=== PATIENT | female | born 1955 | race Caucasian/White ===

== ENCOUNTER 2023-04-19 08:50 | Outpatient (OUT) | payer MEDICARE, SELFPAY ==
--- NOTE | 2023-04-19 09:25 | PM.CN ---
Consult Note: HPI Data of Consult Patient: known to practice within the last 3 years Consult date: 04/19/23 Requesting Physician: FREDDY AMAYA NP Primary Care Provider: CITLALY DUMONT Consult Narrative Reason for consult: back pain Narrative: She is here for mid back pain f/u. Baclofen has been helping her, but pain has increased. She had thoracic RFA 2021 with no relief. TPI with 1 day relief in past. UDS done today. Oncologist gave her tramadol which is not helping. No thoracic XR on file. We discussed getting thoracic XR and she is agreeable. She would like to restart percocet. She has been off of it for 2 months she states. She states it helped her pain better. Can restart percocet today. cc:: CC: FREDDY AMAYA NP Review of Systems ROS Status of ROS 10 or more systems reviewed and unremarkable except as noted in history and below Musculoskeletal Reports: back pain Exam Constitutional Documenting provider has reviewed patient's vital signs: yes Common normals: no apparent distress, oriented x3, healthy appearing and well nourished General appearance: cooperative, well developed and anxious Orientation/consciousness: Yes awake, Yes oriented to person, Yes oriented to place and Yes oriented to time HENMT Common normals: normocephalic, external nose normal and moist oral mucous membranes Respiratory Common normals: normal respiratory effort, no retractions and no use of accessory muscles Effort & inspection: able to speak in complete sentences Back & Pelvis Thoracic spine/upper back: normal to inspection, pain with ROM, paraspinal muscle tenderness and other soft tissue findings Other thoracic soft tissue findings laterality: right Lumbar spine/lower back: normal to inspection Other: muscle strength 4/5 bilat upper and lower extremities with intact sensation. positive facet loading right thoracic. Extremity Common normals: normal to inspection, normal capillary refill and no pedal edema Assessment and Plan Assessment and Plan (1) Thoracic back pain: Plan percocet rx, narcan rx thoracic spine XR UDS F/U 2 months
== END 2023-04-19 08:51 ==
PROVIDERS: PCP Family Medicine; Visit Provider Nurse Practitioner
DX: M54.6 Pain in thoracic spine (principal)
CPT/HCPCS: G0463

== ENCOUNTER 2023-05-17 09:39 | Outpatient (OUT) | payer MEDICARE, SELFPAY ==
--- NOTE | 2023-05-17 09:47 | XR_ITS ---
The [address] [address] Patient Name: ALFRED CERRATO MRN: [id number] date: 1955 Sex: F Assigned Patient Location: [facility] Current Patient Location: [facility] Accession/Order Number: [id number] Exam Date: 05/17/2023 09:50 Report Date: 05/17/2023 10:25 At the request of: FREDDY AMAYA Procedure: XR thoracic spine 2V EXAMINATION: XR thoracic spine 2V HISTORY: Thoracic pain COMPARISON: CT T-spine 12/01/2020 FINDINGS: BONES: Mild right convex curvature of thoracic spine. No fracture, spondylolisthesis, bone lesion. DISC SPACES: Multilevel mild degenerative changes. PARASPINOUS: Negative. No paraspinous abnormality is seen. OTHER: Negative. IMPRESSION: 1. Mild dextrocurvature of thoracic spine; slightly progressed. 2. Multilevel mild degenerative changes; stable to minimally progressed. Electronically authenticated by: ALINA SCHAFER Date: 05/17/2023 10:25
== END 2023-05-17 09:40 | disposition home or self-care (01) ==
LOC: RAD 09:41
PROVIDERS: PCP Family Medicine; Visit Provider Nurse Practitioner
DX: M54.6 Pain in thoracic spine (principal); M41.9 Scoliosis, unspecified; M51.34 Other intervertebral disc degeneration, thoracic region
CPT/HCPCS: 72070

== ENCOUNTER 2023-06-22 09:51 | Outpatient (OUT) | payer MEDICARE, SELFPAY ==
--- NOTE | 2023-06-22 10:08 | PM.CN ---
Consult Note: HPI Data of Consult Patient: known to practice within the last 3 years Consult date: 06/22/23 Requesting Physician: FREDDY AMAYA NP Primary Care Provider: CITLALY DUMONT Consult Narrative Narrative: Patient is here for f/u of chronic right mid back pain . She saw advanced neuro who changed her muscle relaxer to tizanidine. Pain today is right thoracic area worse with ROM . No new sensorimotor sx or bowel or bladder issues. Medication regimen assists patient to better complete ADLs. Denies adverse medication SE. OARRS reviewed. We discussed PT and she would like to try it. She has had thoracic RFA in past without relief. cc:: CC: FREDDY AMAYA NP Review of Systems ROS Status of ROS 10 or more systems reviewed and unremarkable except as noted in history and below Musculoskeletal Reports: back pain Meds Home Medications and Allergies Home Medications Medication Instructions Recorded Confirmed Type aspirin 81 mg tablet,delayed 81 mg PO DAILY 04/19/23 04/19/23 History release calcium 600 mg capsule mg PO 04/19/23 History carvedilol phosphate 10 mg 10 mg PO DAILY 04/19/23 04/19/23 History capsule,[id number] multiphase hydroxyzine HCl 50 mg tablet 50 mg PO .HS 04/19/23 04/19/23 History levothyroxine 112 mcg capsule 112 mcg PO DAILY 04/19/23 04/19/23 History magnesium oxide 400 mg (241.3 mg 400 mg PO DAILY 04/19/23 04/19/23 History magnesium) tablet multivitamin 1 tab PO DAILY 04/19/23 04/19/23 History oxycodone-acetaminophen 5 mg-325 1 tab PO TID 04/19/23 04/19/23 History mg tablet (Endocet) rivaroxaban 20 mg tablet (Xarelto) 20 mg PO DAILY 04/19/23 04/19/23 History zinc 50 mg tablet 50 mg PO DAILY 04/19/23 04/19/23 History Allergies Allergy/AdvReac Type Severity Reaction Status Date / Time Sulfa (Sulfonamide Allergy Verified 04/19/23 12:44 Antibiotics) Exam Constitutional Documenting provider has reviewed patient's vital signs: yes Common normals: no apparent distress, average body habitus, oriented x3, healthy appearing, alert and well nourished General appearance: cooperative, comfortable and well developed Orientation/consciousness: Yes awake, Yes oriented to person, Yes oriented to place and Yes oriented to time HENMT Common normals: normocephalic and moist oral mucous membranes Respiratory Common normals: normal respiratory effort, no retractions and no use of accessory muscles Effort & inspection: able to speak in complete sentences and symmetric chest movement Back & Pelvis Thoracic spine/upper back: normal to inspection, pain with ROM, paraspinal muscle tenderness and paraspinal muscle spasm Other: positive facet load pain right thoracic muscle strength 4/5 bilat UE with intact sensation Extremity Common normals: normal to inspection and normal capillary refill Assessment and Plan Assessment and Plan (1) Thoracic spondylosis: (2) Thoracic back pain: Plan Nonagressive PT for thoracic area
== END 2023-06-22 09:52 | disposition home or self-care (01) ==
LOC: PM 09:52
PROVIDERS: PCP Family Medicine; Visit Provider Nurse Practitioner
DX: M47.814 Spondylosis without myelopathy or radiculopathy, thoracic region (principal); M54.6 Pain in thoracic spine
CPT/HCPCS: G0463

== ENCOUNTER 2023-07-18 11:20 | Outpatient (OUT) | payer MEDICARE, SELFPAY ==
--- NOTE | 2023-07-18 11:36 | P.CN_ITS ---
Consult Note: HPI Data of Consult Patient: known to practice within the last 3 years Requesting Physician: Lexie Alston NP Primary Care Provider: CITLALY DUMONT Consult Narrative Reason for consult: fibromyalgia and acute pain Narrative: Maeve Torres a pleasant 68 year old female presents with 6-10/10 pain in right lower back radiating down right leg. Patient noticed this pain starting a few days ago and today pain is sharp and intense. Patient has a hx of blood clots and is on xarelto. Has noticed increase in cramps to right calf in the last few days. Patient would like to discuss restarting duloxetine for fibromyalgia. cc:: CC: Lexie Alston NP Review of Systems ROS Status of ROS 10 or more systems reviewed and unremarkable except as noted in history and below Musculoskeletal Reports: back pain, extremity pain, limited range of motion, muscle cramps and muscle weakness Meds Home Medications and Allergies Home Medications Medication Instructions Recorded Confirmed Type aspirin 81 mg tablet,delayed 81 mg PO DAILY 04/19/23 04/19/23 History release calcium 600 mg capsule mg PO 04/19/23 History carvedilol phosphate 10 mg 10 mg PO DAILY 04/19/23 04/19/23 History capsule,[id number] multiphase hydroxyzine HCl 50 mg tablet 50 mg PO .HS 04/19/23 04/19/23 History levothyroxine 112 mcg capsule 112 mcg PO DAILY 04/19/23 04/19/23 History magnesium oxide 400 mg (241.3 mg 400 mg PO DAILY 04/19/23 04/19/23 History magnesium) tablet multivitamin 1 tab PO DAILY 04/19/23 04/19/23 History oxycodone-acetaminophen 5 mg-325 1 tab PO TID 04/19/23 04/19/23 History mg tablet (Endocet) rivaroxaban 20 mg tablet (Xarelto) 20 mg PO DAILY 04/19/23 04/19/23 History zinc 50 mg tablet 50 mg PO DAILY 04/19/23 04/19/23 History Allergies Allergy/AdvReac Type Severity Reaction Status Date / Time Sulfa (Sulfonamide Allergy Verified 04/19/23 12:44 Antibiotics) Exam Constitutional Documenting provider has reviewed patient's vital signs: yes Common normals: no apparent distress, oriented x3, healthy appearing, alert and well nourished General appearance: cooperative Nutritional appearance: obese HENMT Common normals: normocephalic, hearing grossly normal bilaterally and moist oral mucous membranes Head and scalp: normocephalic Eye Common normals: PERRL Pupil: PERRL Neck & C-Spine Common normals: full ROM General: normal visual inspection Chest Common normals: inspection of chest normal Respiratory Common normals: normal respiratory effort, no retractions and no use of accessory muscles Back & Pelvis Lumbar spine/lower back: ROM limited, pain with ROM and straight leg raise positive right Other: sciatic nerve pain to right side Extremity Left lower extremity: knee joint Other: right posterior knee tender to touch, warmth to touch. No knot present, no redness, not hot to touch. Patient jumped with touch on physical exam. Patient noticing increase in cramps to right calf over the last few days. Neuro Common normals: oriented x3, CN's II-XII intact bilaterally, moves all extremities, no focal motor deficits, no sensory deficits noted and deep tendon reflexes 2+ bilaterally Sensorium/orientation: alert Motor exam: strength 5/5 throughout and no movement abnormalities noted Psych Common normals: mental status grossly normal, thought process normal, cooperative, affect normal, speech normal and activity/motor behavior normal Speech: normal speech Thought process: normal thought process Results Additional Findings Additional findings: I have checked an OARRS report on this patient today and there are no aberrancies noted in the prescribing history.?? A drug screen was completed and reviewed within the last year, and if there has not been a drug screen completed we ordered one today to monitor higher risk, state monitored pain medication use. As part of providing excellent, safe, comprehensive care, the following was completed at our patient's visit: 1. A medication reconciliation and review to ensure accurate knowledge of current/active medications, including asking our patients to inform us about any [id number] medications or herbal remedies/nutritional supplements/alternative remedies. 2. A review to specifically ensure our patients have had annual screening for: elevated body mass index (BMI), tobacco use, screening for depression, and screening for unhealthy alcohol use. When screening is concerning, patients are provided with education and the specific recommendation to discuss the conc erning health issue and treatment options with their primary care provider. Assessment and Plan Assessment and Plan (1) Sciatic nerve pain: (2) Right knee pain: (3) Lumbar back pain with radiculopathy affecting right lower extremity: (4) Fibromyalgia: Plan Concerned with physical exam findings today to RLE, encouraged ER follow up. We evaluate and treat chronic pain. restart duloxetine 30mg PO daily for fibromyalgia xray lumbar spine f/u 2 weeks to discuss duloxetine
== END 2023-07-18 11:21 | disposition home or self-care (01) ==
LOC: PM 11:20
PROVIDERS: PCP Family Medicine; Visit Provider Nurse Practitioner
DX: M79.7 Fibromyalgia (principal); M25.561 Pain in right knee; M54.41 Lumbago with sciatica, right side
CPT/HCPCS: G0463

== ENCOUNTER 2023-07-18 12:00 | Emergency (ER) | payer MEDICARE, SELFPAY ==
[2023-07-18 12:11] VITALS: BP 128/101; PULSE 65; RESP 17; TEMP 36.3; O2SAT 99
--- NOTE | 2023-07-18 12:45 | US_ITS ---
The [place] [id number] Patient Name: ALFRED CERRATO MRN: [id number] date: 1955 Sex: F Assigned Patient Location: ER Current Patient Location: ER Accession/Order Number: [id number] Exam Date: 07/18/2023 13:11 Report Date: 07/18/2023 13:39 At the request of: MITCH MEHTA Procedure: US venous doppler LE RT EXAM: US venous doppler LE RT HISTORY: pain right lower extremity pain COMPARISON: None. TECHNIQUE: Doppler color flow as well as spectral analysis were performed of the right lower extremity. FINDINGS: There is adequate flow, compressibility, or augmentation within the visualized deep venous structures of the right lower extremity. No evidence of deep venous thrombus. US/US venous doppler LE RT IMPRESSION: 1. No deep venous thrombus. Electronically authenticated by: KIRAN PERDUE Date: 07/18/2023 13:39
--- NOTE | 2023-07-18 12:45 | ED.BACK1 ---
HPI - Back Pain/Injury General Chief Complaint: Back Pain/Injury Stated Complaint: LUMBAR SPINE AND LOWER EXTREMETY PAIN Time Seen by Provider: 07/18/23 12:45 Source: patient Mode of arrival: walk-in Limitations: no limitations History of Present Illness HPI Narrative: Patient presents to emergency department complaining of right leg pain. Patient states she has a history of fibromyalgia and sciatica. She was seen by the nurse practitioner at the pain management clinic and was sent here for evaluation of her lower extremity to check for blood clot. Patient has a history of blood clots. She is complaining of pain that radiates to her right Of. Patient is currently on xarelto. She denies missing any doses. He denies any injury. She states the pain has worsened in the last 2 days. She denies any paresthesias, or weakness. She denies any urinary, or bowel incontinence, retention. She denies any fever, chills, chest pain, shortness of breath. She denies any urinary, bowel incontinence, retention. Related Data Home Medications Medication Instructions Recorded Confirmed aspirin 81 mg tablet,delayed 81 mg PO DAILY 04/19/23 04/19/23 release calcium 600 mg capsule mg PO 04/19/23 carvedilol phosphate 10 mg 10 mg PO DAILY 04/19/23 04/19/23 capsule,[id number] multiphase hydroxyzine HCl 50 mg tablet 50 mg PO .HS 04/19/23 04/19/23 levothyroxine 112 mcg capsule 112 mcg PO DAILY 04/19/23 04/19/23 magnesium oxide 400 mg (241.3 mg 400 mg PO DAILY 04/19/23 04/19/23 magnesium) tablet multivitamin 1 tab PO DAILY 04/19/23 04/19/23 oxycodone-acetaminophen 5 mg-325 1 tab PO TID 04/19/23 04/19/23 mg tablet (Endocet) rivaroxaban 20 mg tablet (Xarelto) 20 mg PO DAILY 04/19/23 04/19/23 zinc 50 mg tablet 50 mg PO DAILY 04/19/23 04/19/23 duloxetine 30 mg capsule,delayed 30 mg PO DAILY 07/18/23 07/18/23 release tizanidine 4 mg tablet 4 mg PO BEDTIME 07/18/23 07/18/23 Previous Rx's Medication Instructions Recorded methylprednisolone 4 mg tablets in 4 mg PO DAILY #21 ea 07/18/23 a dose pack (Medrol ([place])) Allergies Allergy/AdvReac Type Severity Reaction Status Date / Time Sulfa (Sulfonamide Allergy Verified 04/19/23 12:44 Antibiotics) Review of Systems ROS Status of ROS 10 or more systems reviewed and unremarkable except as noted in history and below Exam Narrative Exam Narrative: Nurses notes and vital signs reviewed and patient is not hypoxic. General: Nontoxic, Well-appearing and in no apparent distress. Skin: Warm, dry, no pallor noted. No Rash Head: Normocephalic, atraumatic. Neck: Supple, non-tender. Eye: Pupils are equal, round and EOMI. No scleral icterus. Ears, Nose, Mouth, and Throat: TM clear, no posterior oropharynx erythema or nasal mucosal hypertrophy, uvula is mid-line Oral mucosa is moist Cardiovascular: Regular Rate and Rhythm without murmur, gallop or rub. Respiratory: No accessory muscle use or respiratory distress. Lungs are clear to auscultation, no wheezing, rales or rhonchi Chest Wall: no tenderness Back: No midline thoracic Tenderness. L4-L5 midline lumbar vertebral tenderness. No CVA tenderness Musculoskeletal: Tenderness to palpation to the right. There is no asymmetry, no palpable cords. No erythema or ecchymosis. There is no signs of trauma, infection. GI: Abdomen is soft, non-distended. Normal bowel sounds. No masses appreciated. No tenderness to palpation. No rebound, guarding, or rigidity noted. Neurological: A&O x4. No cranial nerve dysfunction observed. No truncal ataxia. Moves all extremities. Psychiatric: Cooperative and interactive. Normal mood and affect. Constitutional Vital Signs, click to edit/add: Last Vital Signs Temp 97.4 F L 07/18/23 12:11 Pulse 65 07/18/23 12:11 Resp 17 07/18/23 12:11 BP 128/101 H 07/18/23 12:11 Pulse Ox 99 07/18/23 12:11 O2 Del Method Room Air 07/18/23 12:11 Course Vital Signs Vital signs: Vital Signs Temperature 97.4 F L 07/18/23 12:11 Pulse Rate 65 07/18/23 12:11 Respiratory Rate 17 07/18/23 12:11 Blood Pressure 128/101 H 07/18/23 12:11 Pulse Oximetry 99 07/18/23 12:11 Oxygen Delivery Method Room Air 07/18/23 12:11 Temperature 97.4 F L 07/18/23 12:11 Pulse Rate 65 07/18/23 12:11 Respiratory Rate 17 07/18/23 12:11 Blood Pressure 128/101 H 07/18/23 12:11 Pulse Oximetry 99 07/18/23 12:11 Oxygen Delivery Method Room Air 07/18/23 12:11 MDM - Back Pain/Injury MDM Narrative Medical decision making narrative: The [place] [id number] Patient Name: ALFRED CERRATO MRN: [facility]:[id number] date: 1955 Sex: F Assigned Patient Location: ER Current Patient Location: ER Accession/Order Number: [id number] Exam Date: 07/18/2023 13:52 Report Date: 07/18/2023 14:41 At the request of: MITCH MEHTA Procedure: CT lumbar spine wo con CT lumbar spine CLINICAL: Chronic lumbar pain with pain down right leg for 2 weeks. Right foot pain for a few days. TECHNIQUE: Contiguous transaxial images were obtained through the lumbar spine without administration of intravenous contrast. Coronal and sagittal reformations were performed. Dose reduction: mA and/or kV are were adjusted by automated exposure control software based upon patients height and weight. FINDINGS: Comparison made to remote lumbar MRI dated 10/22/2020. There are 5 nonrib-bearing lumbar vertebral bodies. There is no lumbar scoliosis. There is no acute lumbar vertebral compression fracture. There is mild degenerative disc disease of the lumbar spine with minimal grade 1 anterolisthesis of L3 on L4 and L4 on L5. There is disc calcification at the L5-S1 intervertebral disc space. There is abdominal aortic and aortic branch vessel atherosclerosis. There is mild aneurysmal dilatation of the infrarenal abdominal aorta that is mildly tortuous. There are cholecystectomy clips. There are calcified splenic granulomata. There is a cortically based calcification at the left kidney, incompletely evaluated on this nondedicated examination. There is colonic diverticulosis partially visualized. Axial interrogation demonstrates the following: L1-2: There is no significant disc herniation, central canal stenosis, or neural foraminal narrowing. L2-3: There is a mild broad-based disc bulge. There is no central canal stenosis or neural foraminal narrowing. L3-4: There is minimal grade 1 anterolisthesis of L3 on L4. There is a mild broad-based disc bulge with bilateral, right greater than left, facet joint osteoarthritis and ligamentum flavum hypertrophy that contribute to mild central canal stenosis. There is mild bilateral neural foraminal narrowing. L4-5: There is minimal grade 1 anterolisthesis of L4 on L5. There is a mild broad-based disc bulge with bilateral facet joint osteoarthritis. There is mild central canal stenosis. There is mild to moderate bilateral neural foraminal narrowing. L5-S1: There is a posterior disc-osteophyte complex, eccentric to the right with right paracentral, subarticular, and foraminal components. There is bilateral facet joint osteoarthritis. There is no central canal stenosis although there is mild effacement of the right lateral recess. There is severe right neural foraminal narrowing. There is mild left neural foraminal narrowing. IMPRESSION: 1. No acute lumbar vertebral compression fracture. 2. Multilevel degenerative disc disease of the lumbar spine with minimal grade 1 anterolisthesis of L3 on L4 and L4 on L5. 3. At L5-S1, there is a posterior disc-osteophyte complex that is eccentric to the right with right paracentral, subarticular, and foraminal components. There is bilateral facet joint osteoarthritis. There is no central canal stenosis although there is mild effacement the right lateral recess. There is severe right and mild left neural foraminal narrowing. 4. At L4-5, there is minimal grade 1 anterolisthesis of L4 on L5 with a mild broad-based disc bulge and bilateral facet joint osteoarthritis. There is mild central canal stenosis with mild to moderate bilateral neural foraminal narrowing. 5. At L3-4, there is minimal grade 1 anterolisthesis of L3 on L4. There is a mild broad-based disc bulge with bilateral facet joint osteoarthritis and ligamentum flavum hypertrophy that contribute to mild central canal stenosis. There is mild bilateral neural foraminal narrowing. 6. Additional incidental findings as described. Electronically authenticated by: CAYETANO THOMPSON Date: 07/18/2023 14:41 [place] [id number] Patient Name: ALFRED CERRATO MRN: [id number] date: 1955 Sex: F Assigned Patient Location: ER Current Patient Location: ER Accession/Order Number: [id number] Exam Date: 07/18/2023 13:52 Report Date: 07/18/2023 14:28 At the request of: MITCH MEHTAPatient Name: ALFRED CERRATO MRN: [id number] date: 1955 Sex: F Assigned Patient Location: ER Current Patient Location: ER Accession/Order Number: [id number] Exam Date: 07/18/2023 13:11 Report Date: 07/18/2023 13:39 At the request of: MITCH MEHTA Procedure: US venous doppler LE RT EXAM: US venous doppler LE RT HISTORY: pain right lower extremity pain COMPARISON: None. TECHNIQUE: Doppler color flow as well as spectral analysis were performed of the right lower extremity. FINDINGS: There is adequate flow, compressibility, or augmentation within the visualized deep venous structures of the right lower extremity. No evidence of deep venous thrombus. IMPRESSION: 1. No deep venous thrombus. Procedure: XR foot RT min 3V PROCEDURE: XR foot RT min 3V COMPARISON: None. HISTORY: pain FINDINGS: BONES:No acute fracture or dislocation. Remote fixation of the distal tibia with 2 cannulated screws. SOFT TISSUES:Negative. No visible soft tissue swelling. EFFUSION:None visible. OTHER: Negative. IMPRESSION: No acute abnormality Electronically authenticated by: COLIN COUGHLIN Date: 07/18/2023 14:28 Radiologic studies were done and did not show anything acute. Does not have a clot, or an acute fracture of the foot or lumbar spine. She has adequate analgesics and steroids given to her by pain management. The patient was reassured, she Is grateful. She is nontoxic, stable for outpatient follow-up and treatment. At this time the patient is without objective evidence of an acute process requiring hospitalization or inpatient management. The patient has remained hemodynamically stable. No additional indication for emergent studies at this time. I answered all questions. Discussed discharge instructions including standard anticipatory guidance and what should prompt a return to the emergency department, including if they get worse are not getting better or develops any new or concerning symptoms. I've given them specific time frame in which to follow-up, and who to follow-up with. The patient demonstrates understanding. Patient is nontoxic and stable for discharge with outpatient follow-up. This note was created with the assistance of a speech recognition program. Although the intention is to generate documents that actually reflects the content of the visit, no guarantees can be provided that every mistake has been identified and corrected by editing. Differential Diagnosis Differential diagnosis: Likely lumbar radiculopathy, sciatica and strain of lumbar region Medical Records Attestation: I reviewed the patient's medical records. Discharge Plan Discharge Chief Complaint: Back Pain/Injury Clinical Impression: Sciatica of right side, Low back pain, Leg pain, right Patient Disposition: Home, Self-Care Time of Disposition Decision: 15:04 Condition: Good Mode of Transportation: Private Vehicle Prescriptions / Home Meds: New methylprednisolone [Medrol ([place])] 4 mg tablets,dose pack 4 mg PO DAILY Qty: 21 0RF No Action calcium 600 mg capsule PO aspirin 81 mg tablet,delayed release (DR/EC) 81 mg PO DAILY magnesium oxide 400 mg (241.3 mg magnesium) tablet 400 mg PO DAILY multivitamin Tablet 1 tab PO DAILY Xarelto 20 mg tablet 20 mg PO DAILY Rx Instructions: must administer with evening meal zinc 50 mg tablet 50 mg PO DAILY carvedilol phosphate 10 mg capsule, ER multiphase 24 hr 10 mg PO DAILY Rx Instructions: must administer with a meal/food hydroxyzine HCl 50 mg tablet 50 mg PO .HS levothyroxine 112 mcg capsule 112 mcg PO DAILY oxycodone-acetaminophen [Endocet] 5-325 mg tablet 1 tab PO TID tizanidine 4 mg tablet 4 mg PO BEDTIME duloxetine 30 mg capsule,delayed release(DR/EC) 30 mg PO DAILY Instructions: Sciatica (ED), Back Pain (ED), Leg Pain (ED) Stand Alone Forms: Portal Instructions Referrals: CITLALY DUMONT [Primary Care Provider] - 1 week Discharge Date/Time: 07/18/23 15:12
--- NOTE | 2023-07-18 12:59 | CT_ITS ---
The [address] [address] Patient Name: ALFRED CERRATO MRN: [id number] date: 1955 Sex: F Assigned Patient Location: ER Current Patient Location: ER Accession/Order Number: [id number] Exam Date: 07/18/2023 13:52 Report Date: 07/18/2023 14:41 At the request of: MITCH MEHTA Procedure: CT lumbar spine wo con CT lumbar spine CLINICAL: Chronic lumbar pain with pain down right leg for 2 weeks. Right foot pain for a few days. TECHNIQUE: Contiguous transaxial images were obtained through the lumbar spine without administration of intravenous contrast. Coronal and sagittal reformations were performed. Dose reduction: mA and/or kV are were adjusted by automated exposure control software based upon patients height and weight. FINDINGS: Comparison made to remote lumbar MRI dated 10/22/2020. There are 5 nonrib-bearing lumbar vertebral bodies. There is no lumbar scoliosis. There is no acute lumbar vertebral compression fracture. There is mild degenerative disc disease of the lumbar spine with minimal grade 1 anterolisthesis of L3 on L4 and L4 on L5. There is disc calcification at the L5-S1 intervertebral disc space. There is abdominal aortic and aortic branch vessel atherosclerosis. There is mild aneurysmal dilatation of the infrarenal abdominal aorta that is mildly tortuous. There are cholecystectomy clips. There are calcified splenic granulomata. There is a cortically based calcification at the left kidney, incompletely evaluated on this nondedicated examination. There is colonic diverticulosis partially visualized. Axial interrogation demonstrates the following: L1-2: There is no significant disc herniation, central canal stenosis, or neural foraminal narrowing. L2-3: There is a mild broad-based disc bulge. There is no central canal stenosis or neural foraminal narrowing. L3-4: There is minimal grade 1 anterolisthesis of L3 on L4. There is a mild broad-based disc bulge with bilateral, right greater than left, facet joint osteoarthritis and ligamentum flavum hypertrophy that contribute to mild central canal stenosis. There is mild bilateral neural foraminal narrowing. L4-5: There is minimal grade 1 anterolisthesis of L4 on L5. There is a mild broad-based disc bulge with bilateral facet joint osteoarthritis. There is mild central canal stenosis. There is mild to moderate bilateral neural foraminal narrowing. L5-S1: There is a posterior disc-osteophyte complex, eccentric to the right with right paracentral, subarticular, and foraminal components. There is bilateral facet joint osteoarthritis. There is no central canal stenosis although there is mild effacement of the right lateral recess. There is severe right neural foraminal narrowing. There is mild left neural foraminal narrowing. CT/CT lumbar spine wo con IMPRESSION: 1. No acute lumbar vertebral compression fracture. 2. Multilevel degenerative disc disease of the lumbar spine with minimal grade 1 anterolisthesis of L3 on L4 and L4 on L5. 3. At L5-S1, there is a posterior disc-osteophyte complex that is eccentric to the right with right paracentral, subarticular, and foraminal components. There is bilateral facet joint osteoarthritis. There is no central canal stenosis although there is mild effacement the right lateral recess. There is severe right and mild left neural foraminal narrowing. 4. At L4-5, there is minimal grade 1 anterolisthesis of L4 on L5 with a mild broad-based disc bulge and bilateral facet joint osteoarthritis. There is mild central canal stenosis with mild to moderate bilateral neural foraminal narrowing. 5. At L3-4, there is minimal grade 1 anterolisthesis of L3 on L4. There is a mild broad-based disc bulge with bilateral facet joint osteoarthritis and ligamentum flavum hypertrophy that contribute to mild central canal stenosis. There is mild bilateral neural foraminal narrowing. 6. Additional incidental findings as described. Electronically authenticated by: CAYETANO THOMPSON Date: 07/18/2023 14:41
--- NOTE | 2023-07-18 12:59 | XR_ITS ---
[address] [address] Patient Name: ALFRED CERRATO MRN: [id number] date: 1955 Sex: F Assigned Patient Location: ER Current Patient Location: ER Accession/Order Number: [id number] Exam Date: 07/18/2023 13:52 Report Date: 07/18/2023 14:28 At the request of: MITCH MEHTA Procedure: XR foot RT min 3V PROCEDURE: XR foot RT min 3V COMPARISON: None. HISTORY: pain FINDINGS: BONES:No acute fracture or dislocation. Remote fixation of the distal tibia with 2 cannulated screws. SOFT TISSUES:Negative. No visible soft tissue swelling. EFFUSION:None visible. OTHER: Negative. XR/XR foot RT min 3V IMPRESSION: No acute abnormality Electronically authenticated by: COLIN COUGHLIN Date: 07/18/2023 14:28
--- NOTE | 2023-07-18 16:52 | ECG_ITS ---
The [facility] Test Date: 2023-07-18 Pat Name: ALFRED CERRATO Department: Room: - Gender: Female Data Management: : 1955 Requested By: Order Number: [id number] Reading MD: GLEN PHILLIP Measurements Intervals [place] Rate: 57 P: 65 OK: 144 QRS: 47 QRSD: 88 T: 60 QT: 432 QTc: 427 Interpretive Statements 1100 Sinus rhythm 9110 normal ECG No previous ECG available for comparison Electronically Signed On 07-19-2023 7:05:54 EDT by GLEN PHILLIP
== END 2023-07-18 15:12 | disposition home or self-care (01) ==
PROVIDERS: Emergency Provider Emergency Medicine; PCP Family Medicine
DX: M54.41 Lumbago with sciatica, right side (principal); M79.604 Pain in right leg; M79.7 Fibromyalgia; M25.561 Pain in right knee; Z79.01 Long term (current) use of anticoagulants; Z79.82 Long term (current) use of aspirin; Z79.899 Other long term (current) drug therapy; Z79.890 Hormone replacement therapy
CPT/HCPCS: 72131; 73630; 93005; 93971; 99285; G0463

== ENCOUNTER 2023-08-01 12:41 | Outpatient (OUT) | payer MEDICARE, SELFPAY ==
--- NOTE | 2023-08-01 13:15 | P.CN_ITS ---
Consult Note: HPI Data of Consult Requesting Physician: Lexie Alston NP Primary Care Provider: CITLALY DUMONT Consult Narrative Reason for consult: f/u Narrative: Maeve Torres a pleasant 68 year old female presents for evaluation of chronic back pain with bilateral radiculopathy. Patient rating pain 4/10 today. Has been on a 21 day steroid pack since last ER visit for back and right leg pain. cc:: CC: Lexie Alston NP Review of Systems ROS Status of ROS 10 or more systems reviewed and unremarkable except as noted in history and below Musculoskeletal Reports: back pain, extremity pain and joint pain Meds Home Medications and Allergies Home Medications Medication Instructions Recorded Confirmed Type aspirin 81 mg tablet,delayed 81 mg PO DAILY 04/19/23 04/19/23 History release calcium 600 mg capsule mg PO 04/19/23 History carvedilol phosphate 10 mg 10 mg PO DAILY 04/19/23 04/19/23 History capsule,[id number] multiphase hydroxyzine HCl 50 mg tablet 50 mg PO .HS 04/19/23 04/19/23 History levothyroxine 112 mcg capsule 112 mcg PO DAILY 04/19/23 04/19/23 History magnesium oxide 400 mg (241.3 mg 400 mg PO DAILY 04/19/23 04/19/23 History magnesium) tablet multivitamin 1 tab PO DAILY 04/19/23 04/19/23 History oxycodone-acetaminophen 5 mg-325 1 tab PO TID 04/19/23 04/19/23 History mg tablet (Endocet) rivaroxaban 20 mg tablet (Xarelto) 20 mg PO DAILY 04/19/23 04/19/23 History zinc 50 mg tablet 50 mg PO DAILY 04/19/23 04/19/23 History duloxetine 30 mg capsule,delayed 30 mg PO DAILY 07/18/23 07/18/23 History release methylprednisolone 4 mg tablets in 4 mg PO DAILY #21 ea 07/18/23 Rx a dose pack (Medrol ([facility])) tizanidine 4 mg tablet 4 mg PO BEDTIME 07/18/23 07/18/23 History oxycodone-acetaminophen 5 mg-325 1 tab PO TID PRN pain #90 tabs 08/01/23 Rx mg tablet (Percocet) Allergies Allergy/AdvReac Type Severity Reaction Status Date / Time Sulfa (Sulfonamide Allergy Verified 04/19/23 12:44 Antibiotics) Exam Constitutional Documenting provider has reviewed patient's vital signs: yes Common normals: no apparent distress, oriented x3, healthy appearing, alert and well nourished General appearance: cooperative HENMT Common normals: normocephalic, hearing grossly normal bilaterally and moist oral mucous membranes Head and scalp: normocephalic Eye Common normals: PERRL Pupil: PERRL Neck & C-Spine Common normals: full ROM General: normal visual inspection Chest Common normals: inspection of chest normal Respiratory Common normals: normal respiratory effort, no retractions and no use of accessory muscles Back & Pelvis Lumbar spine/lower back: ROM limited, pain with ROM, straight leg raise positive right and straight leg raise positive left Extremity Common normals: normal to inspection and full ROM Neuro Common normals: oriented x3, CN's II-XII intact bilaterally, moves all extremities, no focal motor deficits, no sensory deficits noted and deep tendon reflexes 2+ bilaterally Sensorium/orientation: alert Gait (neuro): antalgic Motor exam: strength 5/5 throughout and no movement abnormalities noted Psych Common normals: mental status grossly normal, thought process normal, cooperative, affect normal, speech normal and activity/motor behavior normal Speech: normal speech Thought process: normal thought process Results Additional Findings Additional findings: I have checked an OAR[place] report on this patient today and there are no aberrancies noted in the prescribing history.?? A drug screen was completed and reviewed within the last year, and if there has not been a drug screen completed we ordered one today to monitor higher risk, state monitored pain medication use. As part of providing excellent, safe, comprehensive care, the following was completed at our patient's visit: 1. A medication reconciliation and review to ensure accurate knowledge of current/active medications, including asking our patients to inform us about any [id number] medications or herbal remedies/nutritional sup plements/alternative remedies. 2. A review to specifically ensure our patients have had annual screening for: elevated body mass index (BMI), tobacco use, screening for depression, and screening for unhealthy alcohol use. When screening is concerning, patients are provided with education and the specific recommendation to discuss the concerning health issue and treatment options with their primary care provider. Assessment and Plan Assessment and Plan (1) Fibromyalgia: (2) Lumbar back pain with radiculopathy affecting right lower extremity: Assessment and Plan: CT scan reviewed with patient, could benefit from TFESI in the future (3) Chronic prescription opiate use: Assessment and Plan: I feel these medications are improving the patient's quality of life and allow them to tolerate activities of daily living as well as participate in recreational activity.? The patient does not report intolerable side effects. The patient is NOT opioid naive and non-pharmacologic and non-opioid treatment has failed to significantly relieve the patient's pain and improve functionality. The patient has a diagnosis that is related to a somatic or visceral pain etiology. ? ?? I reviewed with the patient the potential risks and side effects with the use of? opioid medications including but not limited to respiratory depression,? sedation, and even . I verified the patient has access to naloxone should? these effects occur. I advised the patient to avoid the use of any other? sedation substances including alcohol, THC, and benzodiazepines while? taking opioid medications due to the risk of compounding side effects and? detrimental outcomes. I reviewed the IUSS ACOUSTIC ANALYST, pain treatment agreement, urine? drug screen, and opioid start talking forms. The patient was advised to let? their family know they had Naloxone in case they would need to administer? the medication.? ?? A drug screen was completed within the last year, and no aberrancies were noted regarding their use of controlled substances. The patient understands they are subject to the terms and conditions of the pain contract that they have signed. ? ?? I have checked an OARRS report on this patient today and there are no aberrancies noted in the prescribing history.? (4) Obesity: Plan increase duloxetine 60mg HS finish steroid pack from ER, has 6 days left. Has noticed improvement in radicu lar pain but continues to have right knee pain refill and continue percocet 5-325mg PO TID PRN moderate severe pain, tolerating well without side effects f/u 1 month, could benefit from bilateral L4-5 TFESI in the future
== END 2023-08-01 12:42 | disposition home or self-care (01) ==
PROVIDERS: PCP Family Medicine; Visit Provider Nurse Practitioner
DX: M79.7 Fibromyalgia (principal); M54.50 Low back pain, unspecified; Z79.891 Long term (current) use of opiate analgesic
CPT/HCPCS: G0463

== ENCOUNTER 2023-08-02 12:36 | Outpatient (OUT) | payer MEDICARE, SELFPAY ==
[2023-08-02 14:10] LABS: Calcium 9.2 mg/dL (8.5-10.1)
== END 2023-08-02 12:37 | disposition home or self-care (01) ==
LOC: LAB 12:36
PROVIDERS: PCP Family Medicine
DX: E83.51 Hypocalcemia (principal)
CPT/HCPCS: 36415; 82310

== ENCOUNTER 2023-08-29 12:58 | Outpatient (OUT) | payer MEDICARE, SELFPAY ==
--- NOTE | 2023-08-29 13:30 | P.CN_ITS ---
Consult Note: HPI Data of Consult Patient: known to practice within the last 3 years Requesting Physician: Lexie Alston NP Primary Care Provider: CITLALY DUMONT Consult Narrative Reason for consult: F/u Narrative: Maeve Torres a pleasant 68 year old female presents for evaluation and management of chronic pain. Today pain is most bothersome in neck and upper back, since last visit her low back pain and radiculopathy has resolved. Patient has noticed increase in dizziness and headaches since last appointment, has f/u with cardiology and neurology scheduled. Today rating pain 3/10. Reports percocet is greatly beneficial for her pain. cc:: CC: Lexie Alston NP Review of Systems ROS Status of ROS 10 or more systems reviewed and unremarkable except as noted in history and below Musculoskeletal Reports: back pain, neck pain and muscle weakness Meds Home Medications and Allergies Home Medications Medication Instructions Recorded Confirmed Type aspirin 81 mg tablet,delayed 81 mg PO DAILY 04/19/23 04/19/23 History release calcium 600 mg capsule mg PO 04/19/23 History carvedilol phosphate 10 mg 10 mg PO DAILY 04/19/23 04/19/23 History capsule,[id number] multiphase hydroxyzine HCl 50 mg tablet 50 mg PO .HS 04/19/23 04/19/23 History levothyroxine 112 mcg capsule 112 mcg PO DAILY 04/19/23 04/19/23 History magnesium oxide 400 mg (241.3 mg 400 mg PO DAILY 04/19/23 04/19/23 History magnesium) tablet multivitamin 1 tab PO DAILY 04/19/23 04/19/23 History oxycodone-acetaminophen 5 mg-325 1 tab PO TID 04/19/23 04/19/23 History mg tablet (Endocet) rivaroxaban 20 mg tablet (Xarelto) 20 mg PO DAILY 04/19/23 04/19/23 History zinc 50 mg tablet 50 mg PO DAILY 04/19/23 04/19/23 History duloxetine 30 mg capsule,delayed 30 mg PO DAILY 07/18/23 07/18/23 History release methylprednisolone 4 mg tablets in 4 mg PO DAILY #21 ea 07/18/23 Rx a dose pack (Medrol ([facility])) tizanidine 4 mg tablet 4 mg PO BEDTIME 07/18/23 07/18/23 History oxycodone-acetaminophen 5 mg-325 1 tab PO TID PRN pain #90 tabs 08/01/23 Rx mg tablet (Percocet) Allergies Allergy/AdvReac Type Severity Reaction Status Date / Time Sulfa (Sulfonamide Allergy Verified 04/19/23 12:44 Antibiotics) Exam Constitutional Documenting provider has reviewed patient's vital signs: yes Common normals: no apparent distress, oriented x3, healthy appearing, alert and well nourished General appearance: cooperative HENMT Common normals: normocephalic, hearing grossly normal bilaterally and moist oral mucous membranes Head and scalp: normocephalic Eye Common normals: PERRL Pupil: PERRL Neck & C-Spine Common normals: full ROM General: normal visual inspection Cervical spine: pain with cervical ROM and paracervical muscle tenderness Chest Common normals: inspection of chest normal Respiratory Common normals: normal respiratory effort, no retractions and no use of accessory muscles Back & Pelvis Thoracic spine/upper back: ROM limited, pain with ROM and paraspinal muscle tenderness Lumbar spine/lower back: ROM limited, pain with ROM and paraspinal muscle tenderness Extremity Common normals: normal to inspection and full ROM Neuro Common normals: oriented x3, CN's II-XII intact bilaterally, moves all extremities, no focal motor deficits, no sensory deficits noted and deep tendon reflexes 2+ bilaterally Sensorium/orientation: alert Motor exam: no movement abnormalities noted and strength abnormal (4/5 in BUE) Psych Common normals: mental status grossly normal, thought process normal, cooperative, affect normal, speech normal and activity/motor behavior normal Speech: normal speech Thought process: normal thought process Results Additional Findings Additional findings: I have checked an OARRS report on this patient today and there are no aberrancies noted in the prescribing history.?? A drug screen was completed and reviewed within the last year, and if there has not been a drug screen completed we ordered one today to monitor higher risk, state monitored pain medication use. As part of providing excellent, safe, comprehensive care, the following was completed at our patient's visit: 1. A medication reconciliation and review to ensure accurate knowledge of current/active medications, including asking our patients to inform us about any [id number] medications or herbal remedies/nutritional suppl ements/alternative remedies. 2. A review to specifically ensure our patients have had annual screening for: elevated body mass index (BMI), tobacco use, screening for depression, and screening for unhealthy alcohol use. When screening is concerning, patients are provided with education and the specific recommendation to discuss the concerning health issue and treatment options with their primary care provider. Assessment and Plan Assessment and Plan (1) Fibromyalgia: (2) Chronic prescription opiate use: (3) Dizziness: (4) Thoracic spondylosis: (5) Thoracic back pain: (6) Lumbar spondylosis: Plan decrease duloxetine to 30mg, has noticed increase in dizziness in the last month continue percocet 5-325mg BID-TID PRN start PT and aquatherapy for fibromyalgia and back pain lidocaine 5% patch 12hrs on 12hrs off continue f/u with cardiology and neurology, has hx of memory impairment
== END 2023-08-29 12:59 | disposition home or self-care (01) ==
LOC: PM 13:11
PROVIDERS: PCP Family Medicine; Visit Provider Nurse Practitioner
DX: M79.7 Fibromyalgia (principal); Z79.891 Long term (current) use of opiate analgesic; R42 Dizziness and giddiness; M47.894 Other spondylosis, thoracic region; M54.6 Pain in thoracic spine; M47.896 Other spondylosis, lumbar region
CPT/HCPCS: G0463

== ENCOUNTER 2023-09-26 14:50 | Outpatient (OUT) | payer OTHER, SELFPAY ==
--- NOTE | 2023-09-26 15:04 | PM.CN ---
Consult Note: HPI Data of Consult Patient: known to practice within the last 3 years Requesting Physician: Lexie Alston NP Primary Care Provider: CITLALY DUMONT Consult Narrative Reason for consult: F/u Narrative: Maeve Torres a pleasant 68 year old female presents for evaluation and management of chronic pain. Today pain is most bothersome in neck and upper back. Today rating pain 4/10. Reports percocet is greatly beneficial for her pain. cc:: CC: Lexie Alston NP Review of Systems ROS Status of ROS 10 or more systems reviewed and unremarkable except as noted in history and below Musculoskeletal Reports: back pain Meds Home Medications and Allergies Home Medications Medication Instructions Recorded Confirmed Type aspirin 81 mg tablet,delayed 81 mg PO DAILY 04/19/23 04/19/23 History release calcium 600 mg capsule mg PO 04/19/23 History carvedilol phosphate 10 mg 10 mg PO DAILY 04/19/23 04/19/23 History capsule,ext.[id number] multiphase hydroxyzine HCl 50 mg tablet 50 mg PO .HS 04/19/23 04/19/23 History levothyroxine 112 mcg capsule 112 mcg PO DAILY 04/19/23 04/19/23 History magnesium oxide 400 mg (241.3 mg 400 mg PO DAILY 04/19/23 04/19/23 History magnesium) tablet multivitamin 1 tab PO DAILY 04/19/23 04/19/23 History oxycodone-acetaminophen 5 mg-325 1 tab PO TID 04/19/23 04/19/23 History mg tablet (Endocet) rivaroxaban 20 mg tablet (Xarelto) 20 mg PO DAILY 04/19/23 04/19/23 History zinc 50 mg tablet 50 mg PO DAILY 04/19/23 04/19/23 History duloxetine 30 mg capsule,delayed 30 mg PO DAILY 07/18/23 07/18/23 History release methylprednisolone 4 mg tablets in 4 mg PO DAILY #21 ea 07/18/23 Rx a dose pack (Medrol ([place])) tizanidine 4 mg tablet 4 mg PO BEDTIME 07/18/23 07/18/23 History oxycodone-acetaminophen 5 mg-325 1 tab PO TID PRN pain #90 tabs 08/01/23 Rx mg tablet (Percocet) Allergies Allergy/AdvReac Type Severity Reaction Status Date / Time Sulfa (Sulfonamide Allergy Verified 04/19/23 12:44 Antibiotics) Exam Constitutional Documenting provider has reviewed patient's vital signs: yes Common normals: no apparent distress, oriented x3, healthy appearing, alert and well nourished General appearance: cooperative HENMT Common normals: normocephalic, hearing grossly normal bilaterally and moist oral mucous membranes Head and scalp: normocephalic Eye Common normals: PERRL Pupil: PERRL Neck & C-Spine Common normals: full ROM General: normal visual inspection Cervical spine: pain with cervical ROM and paracervical muscle tenderness Chest Common normals: inspection of chest normal Respiratory Common normals: normal respiratory effort, no retractions and no use of accessory muscles Back & Pelvis Thoracic spine/upper back: ROM limited, pain with ROM and paraspinal muscle tenderness Lumbar spine/lower back: ROM limited, pain with ROM, paraspinal muscle tenderness and straight leg raise negative bilaterally Sacroiliac joints: SI joint(s) abnormal Extremity Common normals: normal to inspection and full ROM Neuro Common normals: oriented x3, CN's II-XII intact bilaterally, moves all extremities, no focal motor deficits, no sensory deficits noted and deep tendon reflexes 2+ bilaterally Sensorium/orientation: alert Motor exam: strength 5/5 throughout and no movement abnormalities noted Psych Common normals: mental status grossly normal, thought process normal, cooperative, affect normal, speech normal and activity/motor behavior normal Speech: normal speech Thought process: normal thought process Results Additional Findings Additional findings: I have checked an OARRS report on this patient today and there are no aberrancies noted in the prescribing history.?? A drug screen was completed and reviewed within the last year, and if there has not been a drug screen completed we ordered one today to monitor higher risk, state monitored pain medication use. As part of providing excellent, safe, comprehensive care, the following was completed at our patient's visit: 1. A medication reconciliation and review to ensure accurate knowledge of current/active medications, including asking our patients to inform us about any [id number] medications or herbal remedies/nutritional supplements/alternative remedies. 2. A review to specifically ensure our patients have had annual screening for: elevated body mass index (BMI), tobacco use, screening for depression, and screening for unhealthy alcohol use. When screening is concerning, patients are provided with education and the specific recommendation to discuss the concerning health issue and treatment options with their primary care provider. Assessment and Plan Assessment and Plan (1) Lumbar spondylosis: (2) Lumbar stenosis: (3) Lumbar stenosis with neurogenic claudication: (4) Chronic prescription opiate use: Assessment and Plan: I feel these medications are improving the patient's quality of life and allow them to tolerate activities of daily living as well as participate in recreational activity.? The patient does not report intolerable side effects. The patient is NOT opioid naive and non-pharmacologic and non-opioid treatment has failed to significantly relieve the patient's pain and improve functionality. The patient has a diagnosis that is related to a somatic or visceral pain etiology. ? ?? I reviewed with the patient the potential risks and side effects with the use of? opioid medications including but not limited to respiratory depression,? sedation, and even . I verified the patient has access to naloxone should? these effects occur. I advised the patient to avoid the use of any other? sedation substances including alcohol, THC, and benzodiazepines while? taking opioid medications due to the risk of compounding side effects and? detrimental outcomes. I reviewed the NURSE AIDE EVALUATOR, pain treatment agreement, urine? drug screen, and opioid start talking forms. The patient was advised to let? their family know they had Naloxone in case they would need to administer? the medication.? ?? A drug screen was completed within the last year, and no aberrancies were noted regarding their use of controlled substances. The patient understands they are subject to the terms and conditions of the pain contract that they have signed. ? ?? I have checked an OARRS report on this patient today and there are no aberrancies noted in the prescribing history.? (5) Fibromyalgia: (6) Thoracic back pain: (7) Thoracic spondylosis: (8) Degenerative disc disease: Plan patient continues to have upper and low back pain as well as chronic fibromyalgia pain. We have discussed the complexity of her chronic conditions (spinal stenosis, lumbar and facet arthropathy, degenerative disc disease) and patient would like to undergo a SCS trial as she has a friend who benefitted from this. We have discussed how this would be target neuromodulation to improve, not cure, her pain and it would not treat all of her multiple levels and types of pain. Patient would like a referral to [facility] to discuss neuromodulation. continue current medications as she finds functional improvement and no side effects. patient asked if she could try marijuana, we explained we will not prescribe opioids if she utilizes marijuana products as agreed to in the pain treatment agreement f/u 3 months for medication managment
== END 2023-09-26 14:51 | disposition home or self-care (01) ==
LOC: PM 14:50
PROVIDERS: PCP Family Medicine; Visit Provider Nurse Practitioner
DX: M47.816 Spondylosis without myelopathy or radiculopathy, lumbar region (principal); M48.062 Spinal stenosis, lumbar region with neurogenic claudication; Z79.891 Long term (current) use of opiate analgesic; M79.7 Fibromyalgia; M54.6 Pain in thoracic spine; M47.814 Spondylosis without myelopathy or radiculopathy, thoracic region; M51.36 Other intervertebral disc degeneration, lumbar region
CPT/HCPCS: G0463

== ENCOUNTER 2023-12-27 09:21 | Outpatient (OUT) | payer OTHER, SELFPAY ==
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
--- NOTE | 2023-12-27 09:39 | P.CN_ITS ---
Consult Note: HPI Data of Consult Patient: known to practice within the last 3 years Requesting Physician: Lexie Alston NP Primary Care Provider: CITLALY DUMONT Consult Narrative Reason for consult: F/u Narrative: Maeve Torres a pleasant 68 year old female presents for evaluation and management of chronic pain. Today pain is most bothersome in neck and upper back. Today rating pain 4/10. Reports percocet is greatly beneficial for her pain. Pain increases to 8/10 with activity. Patient being evaluated by [facility] for SCS consideration, upcoming MRI. Patient has not been able to start aquatherapy since last visit due to caring for her sister. Patient has failed conservative medications, failed PT/HEP greater than 6 weeks in the past. KELLEY 36% today. cc:: CC: Lexie Alston NP Review of Systems ROS Status of ROS 10 or more systems reviewed and unremark able except as noted in history and below Musculoskeletal Reports: back pain Meds Home Medications and Allergies Home Medications Medication Instructions Recorded Confirmed Type aspirin 81 mg tablet,delayed 81 mg PO DAILY 04/19/23 04/19/23 History release calcium 600 mg capsule mg PO 04/19/23 History carvedilol phosphate 10 mg 10 mg PO DAILY 04/19/23 04/19/23 History capsule,[id number] multiphase hydroxyzine HCl 50 mg tablet 50 mg PO .HS 04/19/23 04/19/23 History levothyroxine 112 mcg capsule 112 mcg PO DAILY 04/19/23 04/19/23 History magnesium oxide 400 mg (241.3 mg 400 mg PO DAILY 04/19/23 04/19/23 History magnesium) tablet multivitamin 1 tab PO DAILY 04/19/23 04/19/23 History oxycodone-acetaminophen 5 mg-325 1 tab PO TID 04/19/23 04/19/23 History mg tablet (Endocet) rivaroxaban 20 mg tablet (Xarelto) 20 mg PO DAILY 04/19/23 04/19/23 History zinc 50 mg tablet 50 mg PO DAILY 04/19/23 04/19/23 History duloxetine 30 mg capsule,delayed 30 mg PO DAILY 07/18/23 07/18/23 History release methylprednisolone 4 mg tablets in 4 mg PO DAILY #21 ea 07/18/23 Rx a dose pack (Medrol ([place])) tizanidine 4 mg tablet 4 mg PO BEDTIME 07/18/23 07/18/23 History oxycodone-acetaminophen 5 mg-325 1 tab PO TID PRN pain #90 tabs 08/01/23 Rx mg tablet (Percocet) oxycodone-acetaminophen 5 mg-325 1 tab PO TID PRN pain #90 tabs 10/15/23 Rx mg tablet (Percocet) oxycodone-acetaminophen 5 mg-325 1 tab PO TID PRN pain #90 tabs 11/19/23 Rx mg tablet (Endocet) Allergies Allergy/AdvReac Type Severity Reaction Status Date / Time Sulfa (Sulfonamide Allergy Verified 04/19/23 12:44 Antibiotics) Exam Constitutional Documenting provider has reviewed patient's vital signs: yes Common normals: no apparent distress, oriented x3, healthy appearing, alert and well nourished General appearance: cooperative [facility] Common normals: normocephalic, hearing grossly normal bilaterally and moist oral mucous membranes Head and scalp: normocephalic Eye Common normals: PERRL Pupil: PERRL Neck & C-Spine Common normals: full ROM General: normal visual inspection Cervical spine: pain with cervical ROM and paracervical muscle tenderness Chest Common normals: inspection of chest normal Respiratory Common normals: normal respiratory effort, no retractions and no use of accessory muscles Back & Pelvis Thoracic spine/upper back: ROM limited, pain with ROM and paraspinal muscle tenderness Lumbar spine/lower back: ROM limited, pain with ROM, paraspinal muscle tenderness and straight leg raise negative bilaterally Sacroiliac joints: SI joint(s) abnormal Extremity Common normals: normal to inspection and full ROM Neuro Common normals: oriented x3, CN's II-XII intact bilaterally, moves all extremities, no focal motor deficits, no sensory deficits noted and deep tendon reflexes 2+ bilaterally Sensorium/orientation: alert Motor exam: strength 5/5 throughout and no movement abnormalities noted Psych Common normals: mental status grossly normal, thought process normal, cooperative, affect normal, speech normal and activity/motor behavior normal Speech: normal speech Thought process: normal thought process Results Additional Findings Additional findings: I have checked an [place]AR[place] report on this patient today and there are no aberrancies noted in the prescribing history.?? A drug screen was completed and reviewed within the last year, and if there has not been a drug screen completed we ordered one today to monitor higher risk, state monitored pain medication use. As part of providing excellent, safe, comprehensive care, the following was completed at our patient's visit: 1. A medication reconciliation and review to ensure accurate knowledge of current/active medications, including asking our patients to inform us about any [id number] medications or herbal remedies/nutritional supplements/alte rnative remedies. 2. A review to specifically ensure our patients have had annual screening for: elevated body mass index (BMI), tobacco use, screening for depression, and screening for unhealthy alcohol use. When screening is concerning, patients are provided with education and the specific recommendation to discuss the concerning health issue and treatment options with their primary care provider. Assessment and Plan Assessment and Plan (1) Lumbar spondylosis: (2) Lumbar stenosis: (3) Lumbar stenosis with neurogenic claudication: (4) Chronic prescription opiate use: Assessment and Plan: I feel these medications are improving the patient's quality of life and allow them to tolerate activities of daily living as well as participate in recreational activity.? The patient does not report intolerable side effects. The patient is NOT opioid naive and non-pharmacologic and non-opioid treatment has failed to significantly relieve the patient's pain and improve functionality. The patient has a diagnosis that is related to a somatic or visceral pain etiology. ? ?? I reviewed with the patient the potential risks and side effects with the use of? opioid medications including but not limited to respiratory depression,? sedation, and even . I verified the patient has access to naloxone should? these effects occur. I advised the patient to avoid the use of any other? sedation substances including alcohol, THC, and benzodiazepines while? taking opioid medications due to the risk of compounding side effects and? detrimental outcomes. I reviewed the RN BURN, pain treatment agreement, urine? drug screen, and opioid start talking forms. The patient was advised to let? their family know they had Naloxone in case they would need to administer? the medication.? ?? A drug screen was completed within the last year, and no aberrancies were noted regarding their use of controlled substances. The patient understands they are subject to the terms and conditions of the pain contract that they have signed. ? ?? I have checked an OARRS report on this patient today and there are no aberrancies noted in the prescribing history.? (5) Fibromyalgia: (6) Thoracic back pain: (7) Thoracic spondylosis: (8) Degenerative disc disease: Plan continue f/u with [facility] for consideration of SCS continue current medications as she finds functional improvement and no side effects. random UDS today f/u 3 months for medication managment
== END 2023-12-27 09:22 | disposition home or self-care (01) ==
PROVIDERS: PCP Family Medicine; Visit Provider Nurse Practitioner
DX: M47.816 Spondylosis without myelopathy or radiculopathy, lumbar region (principal); M48.062 Spinal stenosis, lumbar region with neurogenic claudication; Z79.891 Long term (current) use of opiate analgesic; M79.7 Fibromyalgia; M54.6 Pain in thoracic spine; M51.34 Other intervertebral disc degeneration, thoracic region
CPT/HCPCS: G0463